=== PATIENT | female | born 1995 | race Caucasian/White ===

== ENCOUNTER 2019-01-24 23:25 | Emergency (ER) | payer MEDICAID ==
--- NOTE | 2019-01-24 23:43 | EDPHY ---
H & P Stated Complaint: seizure episode Time Seen by Provider: 01/24/19 23:31 HPI/ROS: Chief Complaint: Seizure HPI: 23-year-old woman presenting from the [facility] status post tonic-clonic seizure. Patient has a history of meth and heroin abuse. States she last used heroin yesterday all day, used meth the day prior to that. Patient states she has had seizures associated with withdrawal in the past. She has only been seen in the hospital once. She did take Librium at the [facility]. Did postictal per EMS. Is not currently on any other medications. No fevers or chills. No head injuries. No nausea or vomiting. She was not incontinent. ROS: 10 systems were reviewed and were negative except those elements noted in the HPI. 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 Family History: non-contributory Physical Exam: Gen: Awake, Alert, No Distress HEENT: Nose: no rhinorrhea Eyes: PERRLA, EOMI Mouth: Moist mucosa Neck: Supple, no JVD Chest: nontender, lungs clear to auscultation Heart: S1, S2 normal, no murmur Abd: Soft, non-tender, no guarding Back: no CVA tenderness, no midline tenderness Ext: no edema, non-tender Skin: no rash Neuro: CN II-XII intact, Sensation grossly intact, Strength 5/5 in bilateral upper and lower extremities - Personal History LMP (Females 10-55): Over 28 Days Ago Current Tetanus/Diphtheria Vaccine: Unsure - Medical/Surgical History Hx Asthma: No Hx Chronic Respiratory Disease: No Hx Diabetes: No Hx Cardiac Disease: No Hx Renal Disease: No Hx Cirrhosis: No Hx Alcoholism: No Hx HIV/AIDS: No Hx Splenectomy or Spleen Trauma: No Other PMH: hx meth drug user - Social History Smoking Status: Current every day smoker Constitutional: Initial Vital Signs Temperature (C) 36.9 C 01/24/19 23:33 Heart Rate 127 H 01/24/19 23:33 Respiratory Rate 20 01/24/19 23:33 Blood Pressure 151/89 H 01/24/19 23:33 O2 Sat (%) 98 01/24/19 23:33 O2 Delivery Mode Room Air Allergies/Adverse Reactions: No Known Allergies Allergy (Unverified 01/24/19 23:33) Home Medications: Medication Instructions Recorded NK [No Known Home Meds] 01/24/19 Medical Decision Making ED Course/Re-evaluation: 23-year-old woman status post seizure from the arc. History of seizures from withdrawal from meth and heroin. She has been observed in the emergency department. No further seizure activity. She has been given Librium. Will [facility] with [facility] prepack, return for any concerns. - Data Points Medications Given: Discontinued Medications Chlordiazepoxide HCl (Librium) 25 mg PO EDNOW ONE Stop: 01/25/19 00:45 Last Admin: 01/25/19 00:51 Dose: 25 mg Departure - Departure Disposition: Home, Routine, Self-Care Clinical Impression: Seizure, Polysubstance abuse Condition: Good Instructions: Opioid Withdrawal (ED), Recurrent Seizures in Adults (ED), Generalized Tonic Clonic Seizures (ED), Polysubstance Abuse (ED) Additional Instructions: Follow up with neurologist in about a week for any further seizure activity. Please seek treatment for your polysubstance abuse. Return to the emergency department for further seizures. Referrals: Jitendra Hernandez MD [Medical Doctor] - As per Instructions
[2019-01-25] MEDS ORDERED: chlordiazePOXIDE 25 MG CAP PO ONE (00:44)
[2019-01-25 01:27] VITALS: BP 106/62
[2019-01-25] MEDS ORDERED: CHLORDIAZEPOXIDE 25MG PREPK#6 BTL TAKEHOME ONE (01:43)
== END 2019-01-25 01:53 | disposition home or self-care (01) ==
DX: R56.9 Unspecified convulsions (principal); F19.10 Other psychoactive substance abuse, uncomplicated; F17.200 Nicotine dependence, unspecified, uncomplicated